=== PATIENT | male | born 1950 | race Caucasian/White ===

== ENCOUNTER 2024-05-16 07:03 | Inpatient (IN) | payer MEDICARE, OTHER ==
[~2024-05-16] VITALS: Ht 175.3 cm; Wt 53.6 kg
[2024-05-16 08:01] LABS: BASOPHILS % (AUTO) 0.8 % (0.0-2.0); EOSINOPHILS % (AUTO) 1.1 % (1.0-6.0); HEMATOCRIT 31.6 % (41-53); HEMOGLOBIN 9.8 g/dL (13.5-17.5); LYMPHOCYTES # (AUTO) 1.1 K/uL (1.0-4.8); LYMPHOCYTES % (AUTO) 8.5 % (22.0-44.0); MEAN CORPUSCULAR HEMOGLOBIN 26.1 pg (26.0-34.0); MEAN CORPUSCULAR VOLUME 84 fL (80-100); MONOCYTES # (AUTO) 1.2 K/uL (0.1-1.0); MONOCYTES % (AUTO) 8.7 % (2.0-9.0); NEUTROPHILS # (AUTO) 10.7 K/uL (1.8-7.7); NEUTROPHILS % (AUTO) 80.9 % (40.0-70.0); PLATELET COUNT (AUTO) 350 K/uL (150-450); RED BLOOD CELL COUNT(AUTO) 3.77 MIL/uL (4.50-5.90); WHITE BLOOD COUNT (AUTO) 13.3 K/uL (4.5-11.0)
[2024-05-16 08:12] LABS: ANION GAP 13 mmol/L (8-16); CALCIUM, TOTAL 8.9 mg/dL (8.8-10.5); CARBON DIOXIDE 21 mmol/L (22-29); CHLORIDE 102 mmol/L (98-107); CREATININE 1.93 mg/dL (0.60-1.30); GLOMERULAR FILTR. RATE CALC 34 mL/min (>60); GLUCOSE,RANDOM 202 mg/dL (70-110); POTASSIUM 4.2 mmol/L (3.5-5.1); SODIUM SERUM 136 mmol/L (136-145); UREA NITROGEN, BLOOD 30 mg/dL (7-18)
[2024-05-16 08:15] LABS: COVID AG,FIA SOURCE NASAL SWAB
[2024-05-16 08:21] LABS: ALANINE AMINOTRANSFERASE 32 U/L (12-78); ALBUMIN 2.8 g/dL (3.4-5.0); ALKALINE PHOSPHATASE 172 U/L (46-116); ASPARTATE AMINOTRANSFERASE 30 U/L (15-37); BILIRUBIN,TOTAL 1.1 mg/dL (0.1-1.0); LIPASE 17 U/L (16-77); TOTAL PROTEIN, SERUM 7.7 g/dL (6.4-8.2); TROPONIN I-HIGH SENSITIVITY 43 ng/L (<76)
[2024-05-16 08:43] LABS: INFLUENZA TYPE A NEGATIVE FOR TYPE A (NEGATIVE); INFLUENZA TYPE B NEGATIVE FOR TYPE B (NEGATIVE); SARS-COV2 (COVID) ANTIGEN,FIA Negative (Negative)
[2024-05-16] MEDS: SODIUM CHLORIDE 0.9% 500 ML IV ONE (08:48)
[2024-05-16 08:58] LABS: LACTIC ACID 5.1 mmol/L (0.4-2.0)
[2024-05-16] MEDS: CefTRIAXone 1 GM/DEXTROSE 50 ML IV ONE (09:06)
[2024-05-16] MEDS: DOXYCYCLINE HYCLATE 100 MG in DEXTROSE 5%-WATER 100 ML IV ONE (09:17)
[2024-05-16] MEDS ORDERED: MAGNESIUM HYDROXIDE SUSPENSION 30 ML UDCUP PO PRN (17:30)
[2024-05-16] MEDS ORDERED: MORPHINE SULFATE 2 MG/ML SYRINGE IVP PRN (17:30)
[2024-05-16] MEDS ORDERED: BISACODYL 10 MG RECTAL RECTAL SUPPOSITORY PR PRN (17:30)
[2024-05-16] MEDS: LEVOFLOXACIN 750 MG/D5% WATER 150 ML IV SCH (18:02)
[2024-05-16 20:26] LABS: APPEARANCE,URINE CLEAR (CLEAR); BILIRUBIN,URINE NEGATIVE (NEGATIVE); COLOR,URINE YELLOW (YELLOW); GLUCOSE, URINE (UA) NEGATIVE (NEGATIVE); KETONES,URINE NEGATIVE (NEGATIVE); LEUKOCYTE ESTERASE ,URINE NEGATIVE (NEGATIVE); NITRATE,URINE NEGATIVE (NEGATIVE); OCCULT BLOOD,URINE NEGATIVE (NEGATIVE); PH,URINE 5.5 (5.0-8.0); PROTEIN,URINE 100-200,SEE CONFIRM mg/dL (NEGATIVE); SPECIFIC GRAVITIY, URINE 1.024 (1.003-1.030); UROBILINOGEN,URINE <=1.0 mg/dL (<=1.0)
[2024-05-16 20:29] LABS: SULFOSALICYLIC ACID,URINE Trace (Negative)
[2024-05-16] MEDS: DOCUSATE SODIUM 100 MG CAPSULE PO SCH (21:00)
[2024-05-17] MEDS: HEPARIN SODIUM,PORCINE 5,000 UNITS/ML VIAL SQ SCH (00:51)
[2024-05-17 08:21] VITALS: BP 141/78; PULSE 79; RESP 19; TEMP 98; O2SAT 92
[2024-05-17] MEDS: PANTOPRAZOLE SODIUM 40 MG DR TABLET PO SCH (08:33)
[2024-05-17 08:38] LABS: BASOPHILS % (AUTO) 0.8 % (0.0-2.0); HEMATOCRIT 30.8 % (41-53); HEMOGLOBIN 9.6 g/dL (13.5-17.5); LYMPHOCYTES # (AUTO) 1.7 K/uL (1.0-4.8); LYMPHOCYTES % (AUTO) 13.8 % (22.0-44.0); MEAN CORPUSCULAR HEMOGLOBIN 26.1 pg (26.0-34.0); MEAN CORPUSCULAR HGB CONC 31.2 G/dL (31.0-37.0); MEAN CORPUSCULAR VOLUME 84 fL (80-100); MONOCYTES # (AUTO) 1.3 K/uL (0.1-1.0); MONOCYTES % (AUTO) 10.3 % (2.0-9.0); NEUTROPHILS # (AUTO) 9.1 K/uL (1.8-7.7); NEUTROPHILS % (AUTO) 73.1 % (40.0-70.0); PLATELET COUNT (AUTO) 302 K/uL (150-450); RED BLOOD CELL COUNT(AUTO) 3.67 MIL/uL (4.50-5.90); RED CELL DISTRIBUTION WIDTH 19.6 % (11.5-14.5); WHITE BLOOD COUNT (AUTO) 12.4 K/uL (4.5-11.0)
[2024-05-17 08:50] LABS: CALCIUM, TOTAL 8.9 mg/dL (8.8-10.5); CREATININE 1.81 mg/dL (0.60-1.30); POTASSIUM 3.6 mmol/L (3.5-5.1)
[2024-05-17 11:58] VITALS: BP 134/112; PULSE 130; RESP 18; TEMP 97.5; O2SAT 98
[2024-05-17 15:55] VITALS: BP 136/91; PULSE 103; RESP 18; TEMP 97.8; O2SAT 95
[2024-05-17] MEDS: SODIUM CHLORIDE 0.9% 1,000 ML IV ONE (16:27)
[2024-05-17 16:56] LABS: INFLUENZA A-RTPCR,COMBO NEGATIVE (NEGATIVE); INFLUENZA B-RTPCR,COMBO NEGATIVE (NEGATIVE); RESPIRATORY SYNCYTIAL VRS-PCR NEGATIVE (NEGATIVE); SARS COVID19 RTPCR, COMBO NEGATIVE (NEGATIVE)
[2024-05-17 19:47] VITALS: BP 137/95; PULSE 107; RESP 17; TEMP 98; O2SAT 96
[2024-05-17] MEDS: ONDANSETRON HCL 4 MG/2 ML VIAL IVP PRN (19:59)
[2024-05-17] MEDS: ACETAMINOPHEN 325 MG TABLET PO PRN (19:59)
[2024-05-18] VITALS (9 sets, daily range): BP systolic 103–160; BP diastolic 70–96; PULSE 103–130; RESP 19–22; TEMP 97.3–98.1; O2SAT 94–100
[2024-05-18] MEDS: IPRATROPIUM BROMIDE 0.5 MG/2.5 ML NEB SOLUTION NEB PRN (00:12)
[2024-05-18] MEDS: ALBUTEROL SULFATE 2.5 MG/0.5 ML NEB SOLUTION NEB PRN (00:12)
[2024-05-18] MEDS: HYDROCODONE/ACETAMINOPHEN 5-325 MG TABLET PO PRN (00:47)
[2024-05-18 08:13] LABS: BASOPHILS % (AUTO) 0.6 % (0.0-2.0); EOSINOPHILS % (AUTO) 2.5 % (1.0-6.0); HEMATOCRIT 29.2 % (41-53); LYMPHOCYTES # (AUTO) 1.8 K/uL (1.0-4.8); LYMPHOCYTES % (AUTO) 13.6 % (22.0-44.0); MEAN CORPUSCULAR HEMOGLOBIN 25.6 pg (26.0-34.0); MEAN CORPUSCULAR HGB CONC 30.7 G/dL (31.0-37.0); MEAN CORPUSCULAR VOLUME 84 fL (80-100); MONOCYTES # (AUTO) 1.3 K/uL (0.1-1.0); MONOCYTES % (AUTO) 9.6 % (2.0-9.0); NEUTROPHILS # (AUTO) 9.6 K/uL (1.8-7.7); NEUTROPHILS % (AUTO) 73.7 % (40.0-70.0); PLATELET COUNT (AUTO) 316 K/uL (150-450)
[2024-05-18 08:21] LABS: CREATININE 1.88 mg/dL (0.60-1.30); POTASSIUM 4.2 mmol/L (3.5-5.1)
[2024-05-18 08:22] LABS: CALCIUM, TOTAL 8.6 mg/dL (8.8-10.5)
[2024-05-18] MEDS ORDERED: ROCURONIUM BROMIDE 10 MG/ML 5 ML VIAL ONE (12:00)
[2024-05-18] MEDS ORDERED: 0.9% SODIUM CHLORIDE 10 ML SYRINGE IVP ONE (12:00)
[2024-05-18] MEDS ORDERED: EPINEPHrine 1:10,000 [1 MG/10 ML] SYRINGE ONE (12:00)
[2024-05-18] MEDS ORDERED: SODIUM BICARBONATE [PEDIATRIC] 8.4% 10 MEQ/10 ML SYRINGE IVP ONE (12:00)
[2024-05-18] MEDS: ASPIRIN 81 MG CHEWABLE TABLET PO SCH (13:30)
[2024-05-18] MEDS: METOPROLOL TARTRATE 25 MG TABLET PO SCH (13:30)
[2024-05-18] MEDS ORDERED: SODIUM CHLORIDE 0.9% 250 ML IV ONE (13:38)
[2024-05-18 14:15] LABS: TROPONIN I-HIGH SENSITIVITY 184 ng/L (<76)
[2024-05-18] MEDS ORDERED: METOPROLOL TARTRATE 25 MG TABLET PO SCH (21:00)
[2024-05-18] MEDS: DEXTROSE 5%-0.45% SODIUM CHL 1,000 ML IV ONE (22:13)
[2024-05-18] MEDS: CefTRIAXone SODIUM 2 GM in DEXTROSE 5%-WATER 50 ML IV SCH (22:13)
[2024-05-18 22:18] LABS: PH,URINE DRUG SCREEN 5.5 (5.0-8.0)
[2024-05-18 22:19] LABS: ALCOHOL, URINE DRUG SCREEN NEGATIVE (NEGATIVE); AMPHET/METH SCREEN,URINE NEGATIVE (NEGATIVE); BARBITURATE SCREEN, URINE NEGATIVE (NEGATIVE); BENZODIAZEPINES SCREEN,URINE NEGATIVE (NEGATIVE); CANNABINOID SCREEN,URINE POSITIVE (NEGATIVE); COCAINE SCREEN,URINE NEGATIVE (NEGATIVE); METHADONE SCREEN, URINE NEGATIVE (NEGATIVE); OPIATE SCREEN,URINE POSITIVE (NEGATIVE); PHENCYCLIDINE SCREEN,URINE NEGATIVE (NEGATIVE)
[2024-05-18] MEDS: ZOLPIDEM TARTRATE 5 MG TABLET PO PRN (23:02)
[2024-05-19] VITALS (14 sets, daily range): BP systolic 119–178; BP diastolic 71–111; PULSE 65–84; RESP 20–29; TEMP 94.4–97.7; O2SAT 95–100
[2024-05-19] MEDS: DOXYCYCLINE HYCLATE 100 MG in DEXTROSE 5%-WATER 100 ML IV SCH (00:18)
[2024-05-19] MEDS ORDERED: SODIUM CHLORIDE 0.9% 1,000 ML ONE (01:18)
[2024-05-19 01:51] LABS: GLUCOMETER DEV NAME(LOC) 5S.2D; GLUCOSE,POINT OF CARE 100 MG/DL (70-110)
[2024-05-19 02:00] LABS: ABG BASE EXCESS -31.7 mmol/L (-2.0-3.0); ABG CARBOXYHEMOGLOBIN 0.3 % (0.5-1.5); ABG METHEMOGLOBIN 1.7 % (0.0-1.5); ABG OXYGEN CONTENT 13.5 mL/dL (15.0-23.0); ABG OXYGEN SATURATION 99.7 % (94.0-98.0); ABG OXYHEMOGLOBIN 97.7 % (94.0-98.0); ABG PCO2 51 mmHg (32.0-48.0); ABG TOTAL HEMOGLOBIN 8.9 G/dL (13.5-17.5); SOURCE, BLOOD GAS ARTERIAL; TEMPERATURE, FAHRENHEIT, BG 97.7 FAHREN (96.0-98.6)
[2024-05-19 02:04] LABS: ABG A-A DIFF O2 201.6 mmHg (10-20.0); ABG PH 6.642 (7.350-7.450); O2 DEVICE,BLOOD GAS VENT (ROOM AIR); PO2, ARTERIAL BG 461.4 mmHg (83.0-108.0); SITE, BLOOD GAS LFT BRACHIAL
[2024-05-19 02:05] LABS: PEEP,BG 5 cm H2O; VT, ABG 400 ml
[2024-05-19] MEDS ORDERED: SODIUM BICARBONATE [ADULT] 8.4% 50 MEQ/50 ML SYRINGE IVP ONE (02:06)
[2024-05-19] MEDS: SODIUM BICARBONATE [ADULT] 8.4% 50 MEQ/50 ML SYRINGE IVP ONE (02:23)
[2024-05-19 03:10] LABS: HEMATOCRIT 31.6 % (41-53); MEAN CORPUSCULAR HEMOGLOBIN 25.5 pg (26.0-34.0); MEAN CORPUSCULAR HGB CONC 25.2 G/dL (31.0-37.0); MEAN CORPUSCULAR VOLUME 101 fL (80-100); PLATELET COUNT (AUTO) 290 K/uL (150-450); RED BLOOD CELL COUNT(AUTO) 3.13 MIL/uL (4.50-5.90); WHITE BLOOD COUNT (AUTO) 13.7 K/uL (4.5-11.0)
[2024-05-19 03:18] LABS: BAND NEUTROPHILS % (MANUAL) 0 % (0-5)
[2024-05-19 03:19] LABS: LYMPHOCYTES % (MANUAL) 20 % (22-44); MONOCYTES % (MANUAL) 9 % (2-9); SEGMENTED NEUTROPHILS % 71 % (40-70); TOTAL CELLS COUNTED 100
[2024-05-19 03:46] LABS: ABG BASE EXCESS -21.1 mmol/L (-2.0-3.0); ABG CARBOXYHEMOGLOBIN 0.1 % (0.5-1.5); ABG HCO3 9.6 mmol/L (21.0-28.0); ABG METHEMOGLOBIN 0.2 % (0.0-1.5); ABG OXYGEN CONTENT 13.6 mL/dL (15.0-23.0); ABG OXYGEN SATURATION 99.8 % (94.0-98.0); ABG OXYHEMOGLOBIN 99.5 % (94.0-98.0); ABG PCO2 25 mmHg (32.0-48.0); ABG TOTAL HEMOGLOBIN 9.1 G/dL (13.5-17.5); SOURCE, BLOOD GAS ARTERIAL; TEMPERATURE, FAHRENHEIT, BG 94.9 FAHREN (96.0-98.6)
[2024-05-19 04:26] LABS: PROTHROMBIN TIME 17.2 SEC (9.4-11.6)
[2024-05-19 04:31] LABS: ALANINE AMINOTRANSFERASE 924 U/L (12-78); ALBUMIN 2.5 g/dL (3.4-5.0); ALKALINE PHOSPHATASE 327 U/L (46-116); ANION GAP 25 mmol/L (8-16); BILIRUBIN,TOTAL 0.8 mg/dL (0.1-1.0); CALCIUM, TOTAL 8.3 mg/dL (8.8-10.5); CARBON DIOXIDE 11 mmol/L (22-29); CHLORIDE 99 mmol/L (98-107); CREATININE 2.56 mg/dL (0.60-1.30); GLOMERULAR FILTR. RATE CALC 25 mL/min (>60); GLUCOSE,RANDOM 125 mg/dL (70-110); POTASSIUM 4.8 mmol/L (3.5-5.1); SODIUM SERUM 135 mmol/L (136-145); TOTAL PROTEIN, SERUM 6.9 g/dL (6.4-8.2); UREA NITROGEN, BLOOD 43 mg/dL (7-18)
[2024-05-19 04:32] LABS: LACTIC ACID 13.4 mmol/L (0.4-2.0)
[2024-05-19 04:35] LABS: TROPONIN I-HIGH SENSITIVITY 230 ng/L (<76)
[2024-05-19 04:36] LABS: ABG PH 7.136 (7.350-7.450)
[2024-05-19 04:37] LABS: ABG A-A DIFF O2 229.8 mmHg (10-20.0); O2 DEVICE,BLOOD GAS VENT (ROOM AIR); PEEP,BG 5 cm H2O; PO2, ARTERIAL BG 318.9 mmHg (83.0-108.0); SITE, BLOOD GAS LFT BRACHIAL; VT, ABG 500 ml
[2024-05-19 04:53] LABS: PHOSPHORUS 3.4 mg/dL (2.5-4.9)
[2024-05-19 05:04] LABS: ASPARTATE AMINOTRANSFERASE 503 U/L (15-37)
[2024-05-19 06:01] LABS: BASOPHILS % (AUTO) 0.5 % (0.0-2.0); EOSINOPHILS % (AUTO) 0.2 % (1.0-6.0); HEMATOCRIT 32.9 % (41-53); HEMOGLOBIN 9.4 g/dL (13.5-17.5); LYMPHOCYTES # (AUTO) 1.1 K/uL (1.0-4.8); LYMPHOCYTES % (AUTO) 4.6 % (22.0-44.0); MEAN CORPUSCULAR HEMOGLOBIN 25.1 pg (26.0-34.0); MEAN CORPUSCULAR HGB CONC 28.5 G/dL (31.0-37.0); MEAN CORPUSCULAR VOLUME 88 fL (80-100); MONOCYTES # (AUTO) 1.9 K/uL (0.1-1.0); MONOCYTES % (AUTO) 8.5 % (2.0-9.0); NEUTROPHILS # (AUTO) 19.6 K/uL (1.8-7.7); PLATELET COUNT (AUTO) 321 K/uL (150-450); RED BLOOD CELL COUNT(AUTO) 3.74 MIL/uL (4.50-5.90); RED CELL DISTRIBUTION WIDTH 19.6 % (11.5-14.5); WHITE BLOOD COUNT (AUTO) 22.8 K/uL (4.5-11.0)
[2024-05-19 06:05] LABS: NEUTROPHILS % (AUTO) 86.2 % (40.0-70.0)
[2024-05-19 06:11] LABS: CALCIUM, TOTAL 8.3 mg/dL (8.8-10.5); CREATININE 2.4 mg/dL (0.60-1.30); POTASSIUM 4.4 mmol/L (3.5-5.1)
[2024-05-19 06:17] LABS: TROPONIN I-HIGH SENSITIVITY 224 ng/L (<76)
[2024-05-19] MEDS: SODIUM BICARBONATE 150 MEQ in DEXTROSE 5%-WATER 1,000 ML IV ONE (06:25)
[2024-05-19] MEDS: ETHYL ALCOHOL 62% ANTISEPTIC NASAL SANITIZER 0.6 ML AMPUL NASAL SCH (08:11)
[2024-05-19] MEDS: PROPOFOL 1000 MG/ISO-OSM 100 ML IV PRN (08:12)
[2024-05-19 13:02] LABS: ALBUMIN 2.1 g/dL (3.4-5.0); BILIRUBIN,TOTAL 0.8 mg/dL (0.1-1.0); CALCIUM, TOTAL 7.7 mg/dL (8.8-10.5); CREATININE 2.72 mg/dL (0.60-1.30); MAGNESIUM 2.7 mg/dL (1.80-2.40); PHOSPHORUS 8.6 mg/dL (2.5-4.9); POTASSIUM 3.9 mmol/L (3.5-5.1); TOTAL PROTEIN, SERUM 5.7 g/dL (6.4-8.2)
[2024-05-19] MEDS: MetroNIDAZOLE 500 MG TABLET NG SCH (15:22)
[2024-05-19] MEDS ORDERED: DEXMEDETOMIDINE 400 MCG/NS 100 ML IV PRN (16:00)
[2024-05-19 16:06] LABS: ABG BASE EXCESS -5.3 mmol/L (-2.0-3.0); ABG CARBOXYHEMOGLOBIN 0.5 % (0.5-1.5); ABG HCO3 20.6 mmol/L (21.0-28.0); ABG METHEMOGLOBIN 0.3 % (0.0-1.5); ABG OXYGEN CONTENT 11.7 mL/dL (15.0-23.0); ABG OXYGEN SATURATION 98.2 % (94.0-98.0); ABG OXYHEMOGLOBIN 97.4 % (94.0-98.0); ABG PCO2 28 mmHg (32.0-48.0); ABG TOTAL HEMOGLOBIN 8.4 G/dL (13.5-17.5); ALLEN TEST, BLOOD GAS Positive; O2 DEVICE,BLOOD GAS VENTILATOR (ROOM AIR); PEEP,BG 5 cm H2O; PO2, ARTERIAL BG 109.8 mmHg (83.0-108.0); SITE, BLOOD GAS LFT RADIAL; SOURCE, BLOOD GAS ARTERIAL; TEMPERATURE, FAHRENHEIT, BG 96.2 FAHREN (96.0-98.6); VT, ABG 430 ml
[2024-05-19 17:29] LABS: ABG BASE EXCESS -6.1 mmol/L (-2.0-3.0); ABG CARBOXYHEMOGLOBIN 0.3 % (0.5-1.5); ABG HCO3 20.2 mmol/L (21.0-28.0); ABG METHEMOGLOBIN 0.3 % (0.0-1.5); ABG OXYGEN CONTENT 12.2 mL/dL (15.0-23.0); ABG OXYHEMOGLOBIN 98.4 % (94.0-98.0); ABG PCO2 24 mmHg (32.0-48.0); ABG PH 7.483 (7.350-7.450); ABG TOTAL HEMOGLOBIN 8.6 G/dL (13.5-17.5); PO2, ARTERIAL BG 132.6 mmHg (83.0-108.0); SOURCE, BLOOD GAS ARTERIAL; TEMPERATURE, FAHRENHEIT, BG 97.1 FAHREN (96.0-98.6)
[2024-05-19 17:30] LABS: ALLEN TEST, BLOOD GAS Positive; O2 DEVICE,BLOOD GAS VENTILATOR (ROOM AIR); PEEP,BG 5 cm H2O; PRESSURE SUPPORT, BG 5 cm H2O; SITE, BLOOD GAS LFT RADIAL; SPONTANEOUS VT, BG 453 ml; VENT MODE, BG Press. Support Vent. (ROOM AIR)
[2024-05-19 21:47] LABS: ALBUMIN 2.1 g/dL (3.4-5.0); BILIRUBIN,TOTAL 1.1 mg/dL (0.1-1.0); CALCIUM, TOTAL 7.8 mg/dL (8.8-10.5); CREATININE 2.91 mg/dL (0.60-1.30); MAGNESIUM 2.5 mg/dL (1.80-2.40); PHOSPHORUS 6.8 mg/dL (2.5-4.9); POTASSIUM 3.8 mmol/L (3.5-5.1); TOTAL PROTEIN, SERUM 5.7 g/dL (6.4-8.2)
[2024-05-19] MEDS: BUMETANIDE 0.25 MG/ML 4 ML VIAL IVP ONE (23:32)
[2024-05-20] VITALS: BP 118/80; PULSE 70; RESP 22; TEMP 97.3; O2SAT 96
[2024-05-20 04:00] VITALS: BP 132/81; PULSE 71; RESP 22; TEMP 96.5; O2SAT 97
[2024-05-20 06:33] LABS: BASOPHILS % (AUTO) 0.2 % (0.0-2.0); CALCIUM, TOTAL 7.9 mg/dL (8.8-10.5); CREATININE 3.23 mg/dL (0.60-1.30); EOSINOPHILS % (AUTO) 0 % (1.0-6.0); HEMOGLOBIN 9.2 g/dL (13.5-17.5); LYMPHOCYTES # (AUTO) 1.4 K/uL (1.0-4.8); LYMPHOCYTES % (AUTO) 5.9 % (22.0-44.0); MEAN CORPUSCULAR HEMOGLOBIN 25.7 pg (26.0-34.0); MEAN CORPUSCULAR HGB CONC 30.8 G/dL (31.0-37.0); MEAN CORPUSCULAR VOLUME 84 fL (80-100); MONOCYTES # (AUTO) 1.4 K/uL (0.1-1.0); MONOCYTES % (AUTO) 6.3 % (2.0-9.0); NEUTROPHILS # (AUTO) 20.2 K/uL (1.8-7.7); PHOSPHORUS 7.4 mg/dL (2.5-4.9); PLATELET COUNT (AUTO) 277 K/uL (150-450); POTASSIUM 4.2 mmol/L (3.5-5.1); RED BLOOD CELL COUNT(AUTO) 3.59 MIL/uL (4.50-5.90); RED CELL DISTRIBUTION WIDTH 19.2 % (11.5-14.5)
[2024-05-20 06:38] LABS: TROPONIN I-HIGH SENSITIVITY 272 ng/L (<76)
[2024-05-20 07:27] LABS: NEUTROPHILS % (AUTO) 87.6 % (40.0-70.0)
[2024-05-20 08:00] VITALS: BP 144/91; PULSE 66; RESP 23; TEMP 98.7; O2SAT 100
[2024-05-20 12:00] VITALS: BP 143/87; PULSE 76; RESP 24; TEMP 96.5; O2SAT 100
[2024-05-20 13:23] LABS: CREATININE,URINE RANDOM 20.2 mg/dL (30.0-125.0); SODIUM,URINE RANDOM 75 mmol/l (20-110); UREA NITROGEN,URINE RANDOM 283 mg/dL (350-1000)
[2024-05-20 13:35] LABS: APPEARANCE,URINE CLEAR (CLEAR); BILIRUBIN,URINE NEGATIVE (NEGATIVE); COLOR,URINE LIGHT YELLOW (YELLOW); GLUCOSE, URINE (UA) NEGATIVE (NEGATIVE); KETONES,URINE NEGATIVE (NEGATIVE); LEUKOCYTE ESTERASE ,URINE NEGATIVE (NEGATIVE); NITRATE,URINE NEGATIVE (NEGATIVE); OCCULT BLOOD,URINE LARGE (NEGATIVE); PROTEIN,URINE 30-70 mg/dL (NEGATIVE); SPECIFIC GRAVITIY, URINE 1.009 (1.003-1.030); UROBILINOGEN,URINE <=1.0 mg/dL (<=1.0)
[2024-05-20 13:56] LABS: BACTERIA,URINE None Seen /HPF (None Seen); WBC,URINE 0-2 /HPF (0-5)
[2024-05-20] MEDS: MetroNIDAZOLE 500 MG/NACL 100 ML IV SCH (15:16)
[2024-05-20 16:00] VITALS: BP 154/108; PULSE 96; RESP 19; TEMP 96.4; O2SAT 100
[2024-05-20] MEDS: AMIODARONE HCL 360 MG in DEXTROSE 5%-WATER 242.8 ML IV ONE (17:06)
[2024-05-20] MEDS: AMIODARONE HCL 150 MG in DEXTROSE 5%-WATER 97 ML IV ONE (17:06)
[2024-05-20 20:00] VITALS: BP 163/82; PULSE 90; RESP 18; TEMP 96.7; O2SAT 100
[2024-05-21] VITALS: BP 121/77; PULSE 89; RESP 18; TEMP 96.7; O2SAT 100
[2024-05-21] MEDS: AMIODARONE HCL 540 MG in DEXTROSE 5%-WATER 239.2 ML IV ONE (00:11)
[2024-05-21 04:00] VITALS: BP 134/95; PULSE 83; RESP 19; TEMP 96.8; O2SAT 100
[2024-05-21 06:16] LABS: BASOPHILS % (AUTO) 0.1 % (0.0-2.0); EOSINOPHILS % (AUTO) 0.4 % (1.0-6.0); HEMATOCRIT 31.3 % (41-53); HEMOGLOBIN 9.8 g/dL (13.5-17.5); LYMPHOCYTES # (AUTO) 1.6 K/uL (1.0-4.8); LYMPHOCYTES % (AUTO) 7.2 % (22.0-44.0); MEAN CORPUSCULAR HEMOGLOBIN 25.7 pg (26.0-34.0); MEAN CORPUSCULAR HGB CONC 31.3 G/dL (31.0-37.0); MEAN CORPUSCULAR VOLUME 82 fL (80-100); MONOCYTES # (AUTO) 1.8 K/uL (0.1-1.0); MONOCYTES % (AUTO) 7.9 % (2.0-9.0); NEUTROPHILS # (AUTO) 18.9 K/uL (1.8-7.7); NEUTROPHILS % (AUTO) 84.4 % (40.0-70.0); PLATELET COUNT (AUTO) 299 K/uL (150-450); RED BLOOD CELL COUNT(AUTO) 3.81 MIL/uL (4.50-5.90); RED CELL DISTRIBUTION WIDTH 19.2 % (11.5-14.5); WHITE BLOOD COUNT (AUTO) 22.5 K/uL (4.5-11.0)
[2024-05-21 06:57] LABS: ALANINE AMINOTRANSFERASE 773 U/L (12-78); ALBUMIN 2.1 g/dL (3.4-5.0); ALKALINE PHOSPHATASE 212 U/L (46-116); ANION GAP 15 mmol/L (8-16); ASPARTATE AMINOTRANSFERASE 581 U/L (15-37); BILIRUBIN,TOTAL 0.7 mg/dL (0.1-1.0); CALCIUM, TOTAL 7.9 mg/dL (8.8-10.5); CARBON DIOXIDE 24 mmol/L (22-29); CHLORIDE 99 mmol/L (98-107); CREATININE 3.98 mg/dL (0.60-1.30); GLOMERULAR FILTR. RATE CALC 15 mL/min (>60); GLUCOSE,RANDOM 143 mg/dL (70-110); PHOSPHORUS 7.4 mg/dL (2.5-4.9); POTASSIUM 3.6 mmol/L (3.5-5.1); SODIUM SERUM 138 mmol/L (136-145); TOTAL PROTEIN, SERUM 5.8 g/dL (6.4-8.2); UREA NITROGEN, BLOOD 81 mg/dL (7-18)
[2024-05-21 07:01] LABS: CREATINE KINASE, TOTAL ONLY 4491 U/L (39-308)
[2024-05-21 07:03] LABS: TROPONIN I-HIGH SENSITIVITY 416 ng/L (<76)
[2024-05-21 07:34] LABS: LIPASE 382 U/L (16-77)
[2024-05-21] MEDS ORDERED: HEPARIN SODIUM,PORCINE 5,000 UNITS/ML VIAL IVP PRN ×2 (07:45)
[2024-05-21 08:00] VITALS: BP 138/95; PULSE 74; RESP 22; TEMP 96.6; O2SAT 100
[2024-05-21 08:24] LABS: PROTHROMBIN TIME 16.5 SEC (9.4-11.6)
[2024-05-21 08:36] LABS: BASOPHILS % (AUTO) 0.4 % (0.0-2.0); EOSINOPHILS % (AUTO) 0.4 % (1.0-6.0); HEMATOCRIT 33.5 % (41-53); HEMOGLOBIN 10.4 g/dL (13.5-17.5); LYMPHOCYTES # (AUTO) 1.9 K/uL (1.0-4.8); LYMPHOCYTES % (AUTO) 8.7 % (22.0-44.0); MEAN CORPUSCULAR HEMOGLOBIN 25.4 pg (26.0-34.0); MEAN CORPUSCULAR VOLUME 82 fL (80-100); MONOCYTES # (AUTO) 1.2 K/uL (0.1-1.0); MONOCYTES % (AUTO) 5.4 % (2.0-9.0); NEUTROPHILS # (AUTO) 18.5 K/uL (1.8-7.7); NEUTROPHILS % (AUTO) 85.1 % (40.0-70.0); PLATELET COUNT (AUTO) 307 K/uL (150-450); RED BLOOD CELL COUNT(AUTO) 4.09 MIL/uL (4.50-5.90); RED CELL DISTRIBUTION WIDTH 19.7 % (11.5-14.5); WHITE BLOOD COUNT (AUTO) 21.7 K/uL (4.5-11.0)
[2024-05-21] MEDS: AMIODARONE HCL 200 MG TABLET NG SCH (09:01)
[2024-05-21] MEDS: PANTOPRAZOLE SODIUM 40 MG/VIAL IVP SCH (09:01)
[2024-05-21] MEDS: HEPARIN SODIUM 25000 UNITS/D5W 250 ML IV PRN (09:11)
[2024-05-21 12:00] VITALS: BP 132/89; PULSE 66; RESP 16; TEMP 98.7; O2SAT 100
[2024-05-21 16:29] VITALS: BP 156/82; PULSE 69; RESP 23; TEMP 98.2; O2SAT 100
[2024-05-21] MEDS ORDERED: AMIODARONE HCL 750 MG in DEXTROSE 5%-WATER 485 ML IV SCH (17:00)
[2024-05-21 17:41] LABS: CREATININE 4.04 mg/dL (0.60-1.30)
[2024-05-21 20:00] VITALS: BP 125/63; PULSE 69; RESP 18; TEMP 97.6; O2SAT 99
[2024-05-22] VITALS (7 sets, daily range): BP systolic 102–129; BP diastolic 52–84; PULSE 61–104; RESP 18–20; TEMP 96.7–98; O2SAT 94–99
[2024-05-22 03:52] LABS: BASOPHILS % (AUTO) 0.2 % (0.0-2.0); EOSINOPHILS % (AUTO) 1.6 % (1.0-6.0); HEMATOCRIT 28.7 % (41-53); HEMOGLOBIN 9.1 g/dL (13.5-17.5); LYMPHOCYTES # (AUTO) 1.8 K/uL (1.0-4.8); LYMPHOCYTES % (AUTO) 10.8 % (22.0-44.0); MEAN CORPUSCULAR HEMOGLOBIN 25.4 pg (26.0-34.0); MEAN CORPUSCULAR HGB CONC 31.5 G/dL (31.0-37.0); MEAN CORPUSCULAR VOLUME 81 fL (80-100); MONOCYTES # (AUTO) 1.2 K/uL (0.1-1.0); MONOCYTES % (AUTO) 7.2 % (2.0-9.0); NEUTROPHILS # (AUTO) 13.4 K/uL (1.8-7.7); NEUTROPHILS % (AUTO) 80.2 % (40.0-70.0); PLATELET COUNT (AUTO) 269 K/uL (150-450); RED BLOOD CELL COUNT(AUTO) 3.56 MIL/uL (4.50-5.90); RED CELL DISTRIBUTION WIDTH 19.4 % (11.5-14.5); WHITE BLOOD COUNT (AUTO) 16.6 K/uL (4.5-11.0)
[2024-05-22 04:06] LABS: BILIRUBIN,TOTAL 0.6 mg/dL (0.1-1.0); CALCIUM, TOTAL 8.1 mg/dL (8.8-10.5); CREATININE 3.96 mg/dL (0.60-1.30); MAGNESIUM 2.1 mg/dL (1.80-2.40); TOTAL PROTEIN, SERUM 5.6 g/dL (6.4-8.2)
[2024-05-22 04:12] LABS: POTASSIUM 2.8 mmol/L (3.5-5.1)
[2024-05-22 04:13] LABS: TROPONIN I-HIGH SENSITIVITY 332 ng/L (<76)
[2024-05-22] MEDS ORDERED: POTASSIUM CHL 40 MEQ/D5-0.45NS 1,000 ML IV ONE (06:30)
[2024-05-22] MEDS: POTASSIUM CHL 10 MEQ/WATER 50 ML IV SCH (06:58)
[2024-05-22] MEDS ORDERED: SODIUM CHLORIDE 0.9% 250 ML IV ONE (06:59)
[2024-05-22] MEDS: CARVEDILOL 3.125 MG TABLET PO SCH (09:15)
[2024-05-22] MEDS ORDERED: SODIUM CHLORIDE 0.9% 500 ML IV ONE ×2 (09:23→11:26)
[2024-05-22 14:06] LABS: LEGIONELLA PNEUMO AG URINE Negative (Negative)
[2024-05-22 15:06] LABS: S PNEUMO SOURCE Urine; STREP PNEUMONIAE AG URINE Negative (Negative)
[2024-05-22] MEDS: APIXABAN 2.5 MG TABLET PO SCH (20:03)
[2024-05-22] MEDS: DOXYCYCLINE HYCLATE 100 MG TABLET PO SCH (20:24)
[2024-05-22] MEDS: MetroNIDAZOLE 500 MG TABLET PO SCH (23:54)
[2024-05-23 00:39] VITALS: BP 109/68; PULSE 63; RESP 18; TEMP 97.7; O2SAT 96
[2024-05-23 04:17] VITALS: BP 119/71; PULSE 67; RESP 18; TEMP 97.4; O2SAT 98
[2024-05-23 07:51] LABS: BASOPHILS % (AUTO) 0.8 % (0.0-2.0); EOSINOPHILS % (AUTO) 4.5 % (1.0-6.0); HEMATOCRIT 27.9 % (41-53); HEMOGLOBIN 8.8 g/dL (13.5-17.5); LYMPHOCYTES # (AUTO) 1.3 K/uL (1.0-4.8); LYMPHOCYTES % (AUTO) 10.7 % (22.0-44.0); MEAN CORPUSCULAR HEMOGLOBIN 25.4 pg (26.0-34.0); MEAN CORPUSCULAR HGB CONC 31.4 G/dL (31.0-37.0); MEAN CORPUSCULAR VOLUME 81 fL (80-100); MONOCYTES # (AUTO) 1.2 K/uL (0.1-1.0); PLATELET COUNT (AUTO) 201 K/uL (150-450); RED BLOOD CELL COUNT(AUTO) 3.44 MIL/uL (4.50-5.90); RED CELL DISTRIBUTION WIDTH 19.6 % (11.5-14.5); WHITE BLOOD COUNT (AUTO) 12.1 K/uL (4.5-11.0)
[2024-05-23 08:28] LABS: CALCIUM, TOTAL 8.2 mg/dL (8.8-10.5); CREATININE 3.87 mg/dL (0.60-1.30); MAGNESIUM 1.8 mg/dL (1.80-2.40); PHOSPHORUS 4.7 mg/dL (2.5-4.9); POTASSIUM 3.3 mmol/L (3.5-5.1)
[2024-05-23 08:43] VITALS: BP 112/67; PULSE 51; RESP 19; TEMP 97.1; O2SAT 98
[2024-05-23 08:59] VITALS: PULSE 97
[2024-05-23] MEDS: POTASSIUM CHLORIDE 20 MEQ ER TABLET PO ONE (10:13)
[2024-05-23 11:40] VITALS: BP 90/50; PULSE 55; RESP 17; TEMP 97.1; O2SAT 99
== END 2024-05-23 19:30 | DRG 871 ==
LOC: EMS 07:13 → EDBEDREQ 09:32 → EDH 17:25 → 5S 21:39 → ICU 05-19 01:32 → 5S 05-21 23:15 → UNDODISIN 05-23 17:30
PROVIDERS: ADMIT Internal Medicine; ATTEND Internal Medicine
PROC: 5A1935Z Respiratory Ventilation, Less than 24 Consecutive Hours (ICD-10-PCS; principal; 2024-05-19)
PROC: 0BH17EZ Insertion of Endotracheal Airway into Trachea, Via Natural or Artificial Opening (ICD-10-PCS; 2024-05-19)
PROC: 5A09357 Assistance with Respiratory Ventilation, Less than 24 Consecutive Hours, Continuous Positive Airway Pressure (ICD-10-PCS; 2024-05-19)
PROC: 5A12012 Performance of Cardiac Output, Single, Manual (ICD-10-PCS; 2024-05-19)
DX: A41.9 Sepsis, unspecified organism (principal); I46.9 Cardiac arrest, cause unspecified; I50.23 Acute on chronic systolic (congestive) heart failure; N17.0 Acute kidney failure with tubular necrosis; J96.00 Acute respiratory failure, unspecified whether with hypoxia or hypercapnia; J69.0 Pneumonitis due to inhalation of food and vomit; K72.00 Acute and subacute hepatic failure without coma; J18.1 Lobar pneumonia, unspecified organism; K85.90 Acute pancreatitis without necrosis or infection, unspecified; I13.0 Hypertensive heart and chronic kidney disease with heart failure and stage 1 through stage 4 chronic kidney disease, or unspecified chronic kidney disease; E87.20 Acidosis, unspecified; I42.9 Cardiomyopathy, unspecified; Z20.822 Contact with and (suspected) exposure to COVID-19; I48.91 Unspecified atrial fibrillation; I49.3 Ventricular premature depolarization; D64.9 Anemia, unspecified; E87.6 Hypokalemia; I08.1 Rheumatic disorders of both mitral and tricuspid valves; R73.9 Hyperglycemia, unspecified; N18.9 Chronic kidney disease, unspecified; Z79.899 Other long term (current) drug therapy; Z71.6 Tobacco abuse counseling; Z79.01 Long term (current) use of anticoagulants; Z79.82 Long term (current) use of aspirin; Z90.49 Acquired absence of other specified parts of digestive tract
CPT/HCPCS: 0241U; 36600; 70450; 71045; 71250; 72192; 74150; 76700; 80048; 80053; 80076; 80307; 81001; 81002; 81003; 82550; 82565; 82570; 82805; 82962; 83605; 83690; 83735; 83880; 84100; 84132; 84300; 84484; 84520; 84540; 85025; 85610; 85730; 87040; 87070; 87081; 87449; 87804; 87899; 92526; 92950; 93005; 93306; 94002; 94640; 94660; 97116; 97162; 97530; 99285; G0378; J0171; J0282; J0696; J1644; J1956; J2405; J2470; J2704; J3480; J3490; J7030; J7040; J7050; J7060; 36415-L1; 36415-TC; J7613

== ENCOUNTER 2024-05-23 19:32 | Emergency (ER) | payer MEDICARE, OTHER ==
[~2024-05-23] VITALS: Ht 172.7 cm; Wt 68.0 kg
[2024-05-23 20:09] VITALS: TEMP 97
[2024-05-23 21:40] VITALS: BP 147/88; PULSE 63; RESP 18; O2SAT 99
== END 2024-05-23 21:56 ==
LOC: EMS 19:32
DX: A41.9 Sepsis, unspecified organism (principal); I10 Essential (primary) hypertension; Z90.49 Acquired absence of other specified parts of digestive tract
CPT/HCPCS: 99281; Z7502

== ENCOUNTER 2024-07-06 12:46 | Inpatient (IN) | payer MEDICARE, OTHER ==
[~2024-07-06] VITALS: Ht 172.7 cm; Wt 70.0 kg
[2024-07-06 00:20] VITALS: PULSE 80; RESP 19; O2SAT 99
[2024-07-06 14:50] LABS: COVID AG,FIA SOURCE NASAL SWAB
[2024-07-06 15:08] LABS: INFLUENZA TYPE A NEGATIVE FOR TYPE A (NEGATIVE); INFLUENZA TYPE B NEGATIVE FOR TYPE B (NEGATIVE); SARS-COV2 (COVID) ANTIGEN,FIA Negative (Negative)
[2024-07-06] MEDS: VANCOMYCIN 1.5 GM/WATER(PEG) 300 ML IV ONE (15:27)
[2024-07-06] MEDS: PIPERACILLIN SODIUM/TAZOBACTAM 4.5 GM in DEXTROSE 5%-WATER 100 ML IV ONE (15:27)
[2024-07-06] MEDS ORDERED: ACETAMINOPHEN 325 MG TABLET PO PRN (15:30)
[2024-07-06] MEDS ORDERED: ONDANSETRON HCL 4 MG/2 ML VIAL IVP PRN (15:30)
[2024-07-06 15:44] LABS: BASOPHILS % (AUTO) 0.3 % (0.0-2.0); EOSINOPHILS % (AUTO) 0.1 % (1.0-6.0); HEMATOCRIT 30.7 % (41-53); HEMOGLOBIN 9.2 g/dL (13.5-17.5); LYMPHOCYTES # (AUTO) 0.6 K/uL (1.0-4.8); LYMPHOCYTES % (AUTO) 6.7 % (22.0-44.0); MEAN CORPUSCULAR HEMOGLOBIN 26.4 pg (26.0-34.0); MEAN CORPUSCULAR HGB CONC 30.1 G/dL (31.0-37.0); MEAN CORPUSCULAR VOLUME 88 fL (80-100); MONOCYTES # (AUTO) 0.8 K/uL (0.1-1.0); MONOCYTES % (AUTO) 8.8 % (2.0-9.0); NEUTROPHILS % (AUTO) 84.1 % (40.0-70.0); PLATELET COUNT (AUTO) 320 K/uL (150-450); RED BLOOD CELL COUNT(AUTO) 3.51 MIL/uL (4.50-5.90); RED CELL DISTRIBUTION WIDTH 26.4 % (11.5-14.5); WHITE BLOOD COUNT (AUTO) 9.5 K/uL (4.5-11.0)
[2024-07-06 15:51] LABS: ANION GAP 12 mmol/L (8-16); CALCIUM, TOTAL 8.7 mg/dL (8.8-10.5); CARBON DIOXIDE 25 mmol/L (22-29); CHLORIDE 105 mmol/L (98-107); GLOMERULAR FILTR. RATE CALC 30 mL/min (>60); GLUCOSE,RANDOM 125 mg/dL (70-110); SODIUM SERUM 142 mmol/L (136-145); UREA NITROGEN, BLOOD 33 mg/dL (7-18)
[2024-07-06] MEDS: METOPROLOL SUCCINATE 25 MG ER TABLET PO SCH (15:54)
[2024-07-06] MEDS: FUROSEMIDE 20 MG/2 ML VIAL IVP SCH (15:54)
[2024-07-06 15:55] LABS: ALBUMIN 2.5 g/dL (3.4-5.0); BILIRUBIN,DIRECT 0.5 mg/dL (0.00-0.20); BILIRUBIN,TOTAL 1.1 mg/dL (0.1-1.0); TOTAL PROTEIN, SERUM 6.3 g/dL (6.4-8.2)
[2024-07-06 16:00] LABS: TROPONIN I-HIGH SENSITIVITY 65 ng/L (<76)
[2024-07-06 16:07] LABS: PLATELET MORPHOLOGY COMMENT GIANT PLTS PRESENT; RBC MORPHOLOGY COMMENT ABNORMAL RBC MORPH
[2024-07-06 16:20] LABS: B-TYPE NATRIURETIC PEPTIDE 4790 pg/mL (0-100)
[2024-07-06 19:39] VITALS: PULSE 75; RESP 26; O2SAT 98; O2SAT 99
[2024-07-06] MEDS: ALBUTEROL SULFATE 2.5 MG/0.5 ML NEB SOLUTION NEB ONE (19:39)
[2024-07-06 19:54] VITALS: PULSE 76; RESP 26; O2SAT 99
[2024-07-06 23:50] VITALS: BP 158/89; PULSE 109; RESP 26; TEMP 98.1; O2SAT 95
[2024-07-07] VITALS (9 sets, daily range): BP systolic 104–149; BP diastolic 52–94; PULSE 63–80; RESP 15–29; TEMP 97.3–97.7; O2SAT 94–100
[2024-07-07] MEDS: APIXABAN 5 MG TABLET PO SCH
[2024-07-07] MEDS: DOCUSATE SODIUM 100 MG CAPSULE PO SCH
[2024-07-07 07:24] LABS: CALCIUM, TOTAL 8.5 mg/dL (8.8-10.5); CREATININE 2.19 mg/dL (0.60-1.30)
[2024-07-07 07:26] LABS: BASOPHILS % (AUTO) 0.3 % (0.0-2.0); EOSINOPHILS % (AUTO) 0.1 % (1.0-6.0); HEMATOCRIT 29.4 % (41-53); HEMOGLOBIN 8.8 g/dL (13.5-17.5); LYMPHOCYTES # (AUTO) 0.7 K/uL (1.0-4.8); LYMPHOCYTES % (AUTO) 5.9 % (22.0-44.0); MEAN CORPUSCULAR HEMOGLOBIN 26.2 pg (26.0-34.0); MEAN CORPUSCULAR VOLUME 88 fL (80-100); MONOCYTES # (AUTO) 0.9 K/uL (0.1-1.0); MONOCYTES % (AUTO) 7.9 % (2.0-9.0); NEUTROPHILS # (AUTO) 9.9 K/uL (1.8-7.7); PLATELET COUNT (AUTO) 286 K/uL (150-450); RED BLOOD CELL COUNT(AUTO) 3.35 MIL/uL (4.50-5.90); RED CELL DISTRIBUTION WIDTH 25.7 % (11.5-14.5); WHITE BLOOD COUNT (AUTO) 11.5 K/uL (4.5-11.0)
[2024-07-07 07:40] LABS: NEUTROPHILS % (AUTO) 85.8 % (40.0-70.0); RBC MORPHOLOGY COMMENT ABNORMAL RBC MORPH
[2024-07-07] MEDS: FAMOTIDINE 20 MG TABLET PO SCH (09:23)
[2024-07-07] MEDS: CefTRIAXone 1 GM/DEXTROSE 50 ML IV SCH (12:53)
[2024-07-07 14:34] LABS: ABG BASE EXCESS -1.2 mmol/L (-2.0-3.0); ABG CARBOXYHEMOGLOBIN 0.4 % (0.5-1.5); ABG METHEMOGLOBIN 0.1 % (0.0-1.5); ABG OXYGEN CONTENT 13.1 mL/dL (15.0-23.0); ABG OXYGEN SATURATION 98.8 % (94.0-98.0); ABG OXYHEMOGLOBIN 98.3 % (94.0-98.0); ABG PCO2 28 mmHg (32.0-48.0); ABG PH 7.508 (7.350-7.450); ABG TOTAL HEMOGLOBIN 9.3 G/dL (13.5-17.5); PO2, ARTERIAL BG 126.8 mmHg (83.0-108.0); SOURCE, BLOOD GAS ARTERIAL; TEMPERATURE, FAHRENHEIT, BG 98.6 FAHREN (96.0-98.6)
[2024-07-07 14:35] LABS: ALLEN TEST, BLOOD GAS Positive; O2 DEVICE,BLOOD GAS CANNULA (ROOM AIR); SITE, BLOOD GAS LFT RADIAL
[2024-07-07 14:36] LABS: ABG A-A DIFF O2 97.3 mmHg (10-20.0)
[2024-07-07 18:22] LABS: APPEARANCE,URINE CLEAR (CLEAR); BILIRUBIN,URINE NEGATIVE (NEGATIVE); COLOR,URINE LIGHT YELLOW (YELLOW); GLUCOSE, URINE (UA) NEGATIVE (NEGATIVE); KETONES,URINE NEGATIVE (NEGATIVE); LEUKOCYTE ESTERASE ,URINE NEGATIVE (NEGATIVE); NITRATE,URINE NEGATIVE (NEGATIVE); OCCULT BLOOD,URINE NEGATIVE (NEGATIVE); PROTEIN,URINE NEGATIVE (NEGATIVE); UROBILINOGEN,URINE <=1.0 mg/dL (<=1.0)
[2024-07-07 18:29] LABS: ALCOHOL, URINE DRUG SCREEN NEGATIVE (NEGATIVE); AMPHET/METH SCREEN,URINE NEGATIVE (NEGATIVE); BARBITURATE SCREEN, URINE NEGATIVE (NEGATIVE); BENZODIAZEPINES SCREEN,URINE NEGATIVE (NEGATIVE); CANNABINOID SCREEN,URINE POSITIVE (NEGATIVE); COCAINE SCREEN,URINE NEGATIVE (NEGATIVE); METHADONE SCREEN, URINE NEGATIVE (NEGATIVE); OPIATE SCREEN,URINE NEGATIVE (NEGATIVE); PHENCYCLIDINE SCREEN,URINE NEGATIVE (NEGATIVE)
[2024-07-07] MEDS: FUROSEMIDE 40 MG/4 ML VIAL IVP SCH (20:36)
[2024-07-07] MEDS ORDERED: FUROSEMIDE 20 MG/2 ML VIAL IVP SCH (21:00)
[2024-07-08] VITALS (7 sets, daily range): BP systolic 127–154; BP diastolic 64–86; PULSE 63–71; RESP 18–26; TEMP 96.8–97.8; O2SAT 92–100
[2024-07-08 07:27] LABS: BASOPHILS % (AUTO) 1.1 % (0.0-2.0); EOSINOPHILS % (AUTO) 2.4 % (1.0-6.0); HEMATOCRIT 28.6 % (41-53); HEMOGLOBIN 8.8 g/dL (13.5-17.5); LYMPHOCYTES # (AUTO) 0.8 K/uL (1.0-4.8); LYMPHOCYTES % (AUTO) 8.6 % (22.0-44.0); MEAN CORPUSCULAR HEMOGLOBIN 26.5 pg (26.0-34.0); MEAN CORPUSCULAR HGB CONC 30.6 G/dL (31.0-37.0); MEAN CORPUSCULAR VOLUME 86 fL (80-100); MONOCYTES # (AUTO) 0.7 K/uL (0.1-1.0); MONOCYTES % (AUTO) 7.1 % (2.0-9.0); NEUTROPHILS # (AUTO) 7.7 K/uL (1.8-7.7); NEUTROPHILS % (AUTO) 80.8 % (40.0-70.0); PLATELET COUNT (AUTO) 280 K/uL (150-450); RED BLOOD CELL COUNT(AUTO) 3.31 MIL/uL (4.50-5.90); RED CELL DISTRIBUTION WIDTH 25.1 % (11.5-14.5); WHITE BLOOD COUNT (AUTO) 9.6 K/uL (4.5-11.0)
[2024-07-08 07:43] LABS: ANION GAP 11 mmol/L (8-16); CALCIUM, TOTAL 8.6 mg/dL (8.8-10.5); CARBON DIOXIDE 28 mmol/L (22-29); CHLORIDE 102 mmol/L (98-107); CREATININE 2.21 mg/dL (0.60-1.30); GLOMERULAR FILTR. RATE CALC 29 mL/min (>60); GLUCOSE,RANDOM 70 mg/dL (70-110); POTASSIUM 3.6 mmol/L (3.5-5.1); SODIUM SERUM 141 mmol/L (136-145); TROPONIN I-HIGH SENSITIVITY 30 ng/L (<76); UREA NITROGEN, BLOOD 36 mg/dL (7-18)
[2024-07-08 08:31] LABS: RBC MORPHOLOGY COMMENT DIMORPHIC RBC
[2024-07-09] VITALS: BP 144/94; PULSE 69; RESP 19; TEMP 98.1; O2SAT 99
[2024-07-09 04:00] VITALS: BP 146/87; PULSE 72; RESP 18; TEMP 98.2; O2SAT 100
[2024-07-09 06:46] LABS: BASOPHILS % (AUTO) 1.7 % (0.0-2.0); EOSINOPHILS % (AUTO) 2.7 % (1.0-6.0); HEMATOCRIT 30.3 % (41-53); HEMOGLOBIN 9.5 g/dL (13.5-17.5); LYMPHOCYTES # (AUTO) 0.7 K/uL (1.0-4.8); LYMPHOCYTES % (AUTO) 7.3 % (22.0-44.0); MEAN CORPUSCULAR HGB CONC 31.4 G/dL (31.0-37.0); MEAN CORPUSCULAR VOLUME 86 fL (80-100); MONOCYTES # (AUTO) 0.7 K/uL (0.1-1.0); MONOCYTES % (AUTO) 7.8 % (2.0-9.0); NEUTROPHILS # (AUTO) 7.3 K/uL (1.8-7.7); NEUTROPHILS % (AUTO) 80.5 % (40.0-70.0); PLATELET COUNT (AUTO) 268 K/uL (150-450); RED BLOOD CELL COUNT(AUTO) 3.52 MIL/uL (4.50-5.90); RED CELL DISTRIBUTION WIDTH 24.5 % (11.5-14.5)
[2024-07-09 07:11] LABS: CALCIUM, TOTAL 8.3 mg/dL (8.8-10.5); CREATININE 2.11 mg/dL (0.60-1.30)
[2024-07-09 07:19] VITALS: BP 145/85; PULSE 68; RESP 18; TEMP 97.7; O2SAT 97
[2024-07-09 07:26] LABS: RBC MORPHOLOGY COMMENT DIMORPHIC RBC
[2024-07-09 07:28] LABS: POTASSIUM 2.9 mmol/L (3.5-5.1)
[2024-07-09] MEDS: POTASSIUM CHLORIDE 20 MEQ ER TABLET PO ONE ×2 (09:23→17:22)
[2024-07-09] MEDS: LOSARTAN POTASSIUM 25 MG TABLET PO SCH (10:04)
[2024-07-09 11:26] VITALS: BP 140/80; PULSE 64; RESP 18; TEMP 97.6; O2SAT 97
[2024-07-09 15:47] VITALS: BP 142/81; PULSE 69; RESP 18; TEMP 97.6; O2SAT 98
[2024-07-09 16:11] LABS: CALCIUM, TOTAL 8.4 mg/dL (8.8-10.5); CREATININE 2.1 mg/dL (0.60-1.30); POTASSIUM 3.3 mmol/L (3.5-5.1)
[2024-07-09 20:25] VITALS: BP 143/88; PULSE 69; RESP 18; TEMP 99.3; O2SAT 93
[2024-07-10] VITALS (12 sets, daily range): BP systolic 134–151; BP diastolic 71–88; PULSE 66–98; RESP 17–22; TEMP 97.7–99.1; O2SAT 80–100
[2024-07-10 06:57] LABS: BASOPHILS % (AUTO) 1.1 % (0.0-2.0); EOSINOPHILS % (AUTO) 3.1 % (1.0-6.0); HEMATOCRIT 29.6 % (41-53); HEMOGLOBIN 9.3 g/dL (13.5-17.5); LYMPHOCYTES # (AUTO) 0.7 K/uL (1.0-4.8); LYMPHOCYTES % (AUTO) 8.1 % (22.0-44.0); MEAN CORPUSCULAR HEMOGLOBIN 26.6 pg (26.0-34.0); MEAN CORPUSCULAR HGB CONC 31.4 G/dL (31.0-37.0); MEAN CORPUSCULAR VOLUME 85 fL (80-100); MONOCYTES # (AUTO) 0.7 K/uL (0.1-1.0); MONOCYTES % (AUTO) 8.1 % (2.0-9.0); NEUTROPHILS # (AUTO) 6.9 K/uL (1.8-7.7); NEUTROPHILS % (AUTO) 79.6 % (40.0-70.0); PLATELET COUNT (AUTO) 269 K/uL (150-450); RED BLOOD CELL COUNT(AUTO) 3.49 MIL/uL (4.50-5.90); RED CELL DISTRIBUTION WIDTH 24.2 % (11.5-14.5); WHITE BLOOD COUNT (AUTO) 8.7 K/uL (4.5-11.0)
[2024-07-10 07:10] LABS: CALCIUM, TOTAL 8.4 mg/dL (8.8-10.5); CREATININE 1.94 mg/dL (0.60-1.30); MAGNESIUM 1.6 mg/dL (1.80-2.40); POTASSIUM 3.3 mmol/L (3.5-5.1)
[2024-07-10] MEDS: POTASSIUM CHLORIDE 20 MEQ ER TABLET PO ONE (07:52)
[2024-07-10 08:05] LABS: RBC MORPHOLOGY COMMENT ABNORMAL RBC MORPH
[2024-07-10] MEDS ORDERED: 0.9% SODIUM CHLORIDE 5 ML NEB SOLUTION NEB ONE (08:20)
[2024-07-10] MEDS: ALBUTEROL SULFATE 2.5 MG/0.5 ML NEB SOLUTION NEB PRN (08:48)
[2024-07-10] MEDS: MAGNESIUM SULFATE 2 GM/WATER 50 ML IV ONE (14:32)
[2024-07-10] MEDS: IPRATROPIUM BROMIDE 0.5 MG/2.5 ML NEB SOLUTION NEB PRN (22:18)
[2024-07-11 01:26] VITALS: BP 138/68; PULSE 69; RESP 17; TEMP 98.1; O2SAT 97
[2024-07-11 06:56] VITALS: BP 136/78; PULSE 136; RESP 18; TEMP 98.1; O2SAT 96
[2024-07-11 07:08] VITALS: BP 129/77; PULSE 73; RESP 18; TEMP 98.2; O2SAT 95
[2024-07-11] MEDS: FUROSEMIDE 40 MG TABLET PO SCH (08:48)
[2024-07-11 10:55] VITALS: BP 102/58; PULSE 66; RESP 18; TEMP 98.4; O2SAT 92
[2024-07-11 12:20] LABS: CALCIUM, TOTAL 8.7 mg/dL (8.8-10.5); CREATININE 2.29 mg/dL (0.60-1.30); POTASSIUM 3.6 mmol/L (3.5-5.1)
[2024-07-11 12:28] LABS: BASOPHILS % (AUTO) 1.1 % (0.0-2.0); EOSINOPHILS % (AUTO) 2.9 % (1.0-6.0); HEMATOCRIT 32.7 % (41-53); LYMPHOCYTES # (AUTO) 0.7 K/uL (1.0-4.8); LYMPHOCYTES % (AUTO) 7.8 % (22.0-44.0); MEAN CORPUSCULAR HEMOGLOBIN 26.1 pg (26.0-34.0); MEAN CORPUSCULAR HGB CONC 30.7 G/dL (31.0-37.0); MEAN CORPUSCULAR VOLUME 85 fL (80-100); MONOCYTES # (AUTO) 0.6 K/uL (0.1-1.0); MONOCYTES % (AUTO) 6.6 % (2.0-9.0); NEUTROPHILS # (AUTO) 7.5 K/uL (1.8-7.7); NEUTROPHILS % (AUTO) 81.6 % (40.0-70.0); PLATELET COUNT (AUTO) 280 K/uL (150-450); RED BLOOD CELL COUNT(AUTO) 3.85 MIL/uL (4.50-5.90); RED CELL DISTRIBUTION WIDTH 24.6 % (11.5-14.5); WHITE BLOOD COUNT (AUTO) 9.1 K/uL (4.5-11.0)
[2024-07-11 12:30] LABS: RBC MORPHOLOGY COMMENT ABNORMAL RBC MORPH
[2024-07-11 16:25] VITALS: BP 114/70; PULSE 70; RESP 18; TEMP 98; O2SAT 93
[2024-07-11 21:25] VITALS: BP 123/61; PULSE 66; RESP 18; TEMP 98.4; O2SAT 99
[2024-07-12 04:20] VITALS: BP 135/86; PULSE 68; RESP 20; TEMP 99.1; O2SAT 98
[2024-07-12] MEDS: EMPAGLIFLOZIN 10 MG TABLET PO SCH (08:35)
[2024-07-12 12:15] VITALS: BP 130/80; PULSE 69; RESP 17; TEMP 98.7; O2SAT 95
[2024-07-12] MEDS: ARIPiprazole 5 MG TABLET PO SCH (13:08)
[2024-07-12] MEDS ORDERED: SODIUM CHLORIDE 0.9% 500 ML IV ONE (13:16)
[2024-07-12 19:42] VITALS: BP 133/81; PULSE 76; RESP 18; TEMP 98.7; O2SAT 95
[2024-07-13 04:52] VITALS: BP 99/67; PULSE 67; RESP 18; TEMP 98.2; O2SAT 98
[2024-07-13 08:48] VITALS: BP 137/79; PULSE 65; RESP 18; TEMP 97.8; O2SAT 99
[2024-07-13 20:12] VITALS: BP 108/63; PULSE 76; RESP 17; TEMP 99.1; O2SAT 95
[2024-07-14 06:12] VITALS: BP 113/65; PULSE 65; RESP 18; TEMP 97.7; O2SAT 92
[2024-07-14 08:58] VITALS: BP_SYST 101; BP_SYST 103; BP_DIAS 64; PULSE 60; RESP 18; TEMP 97.7; O2SAT 96
[2024-07-14 10:22] LABS: CALCIUM, TOTAL 8.9 mg/dL (8.8-10.5); CREATININE 2.1 mg/dL (0.60-1.30); POTASSIUM 3.4 mmol/L (3.5-5.1)
[2024-07-14] MEDS: POTASSIUM CHLORIDE 20 MEQ ER TABLET PO ONE (11:11)
[2024-07-14 16:10] VITALS: BP 136/70; PULSE 67; RESP 18; TEMP 98; O2SAT 96
== END 2024-07-14 16:45 | DRG 291 ==
LOC: EMS 12:58 → EDH 15:23 → 5S 07-07 01:43 → 6S 07-11 20:24
PROVIDERS: ADMIT Internal Medicine; ATTEND Internal Medicine
PROC: 5A09357 Assistance with Respiratory Ventilation, Less than 24 Consecutive Hours, Continuous Positive Airway Pressure (ICD-10-PCS; principal; 2024-07-08)
PROC: GZ56ZZZ Individual Psychotherapy, Supportive (ICD-10-PCS; 2024-07-12)
PROC: GZ58ZZZ Individual Psychotherapy, Cognitive-Behavioral (ICD-10-PCS; 2024-07-12)
DX: I13.0 Hypertensive heart and chronic kidney disease with heart failure and stage 1 through stage 4 chronic kidney disease, or unspecified chronic kidney disease (principal); I50.23 Acute on chronic systolic (congestive) heart failure; J96.21 Acute and chronic respiratory failure with hypoxia; J18.9 Pneumonia, unspecified organism; N17.9 Acute kidney failure, unspecified; N18.4 Chronic kidney disease, stage 4 (severe); J44.1 Chronic obstructive pulmonary disease with (acute) exacerbation; I42.9 Cardiomyopathy, unspecified; Z20.822 Contact with and (suspected) exposure to COVID-19; F41.9 Anxiety disorder, unspecified; F12.90 Cannabis use, unspecified, uncomplicated; I07.1 Rheumatic tricuspid insufficiency; I48.0 Paroxysmal atrial fibrillation; I45.10 Unspecified right bundle-branch block; F29 Unspecified psychosis not due to a substance or known physiological condition; Z53.20 Procedure and treatment not carried out because of patient's decision for unspecified reasons; Z79.899 Other long term (current) drug therapy; Z71.6 Tobacco abuse counseling; Z86.74 Personal history of sudden cardiac arrest; Z87.01 Personal history of pneumonia (recurrent); Z91.148 Patient's other noncompliance with medication regimen for other reason; Z91.199 Patient's noncompliance with other medical treatment and regimen due to unspecified reason; D63.8 Anemia in other chronic diseases classified elsewhere
CPT/HCPCS: 71045; 71250; 80048; 80076; 80307; 81003; 82805; 83735; 83880; 84484; 85025; 87040; 87804; 93005; 94640; 94660; 97162; 97530; 99285; G0378; J0696; J1940; J2543; J3475; J7040; J7060; 36415-L1; 36415-TC; J7613